=== PATIENT | male | born 1945 | race Hispanic/Latino ===

== ENCOUNTER 2017-04-30 08:00 | Day surgery (SDC) | payer OTHER, MEDICARE ==
[~2017-04-30] VITALS: Ht 162.6 cm; Wt 82.4 kg
[~2017-04-30 08:00] MED LIST: AMLO10TA2 PO; ASPI-555 PO; SODIUM CHLORIDE 0.9% 1000ML 1,000 ML IV ONE; TERA5CAP4 PO
[2017-04-30 08:30] VITALS: BP 114/65
[2017-04-30] MEDS ORDERED: MEPERIDINE-PF 50 MG/ML SYG ONE (10:49)
[2017-04-30] MEDS ORDERED: MIDAZOLAM HCL 1 MG/ML 2ML VIAL ONE (10:49)
== END 2017-04-30 11:52 | disposition home or self-care (01) ==
LOC: DAH 08:00 → ENDO 08:00
PROVIDERS: ATTEND Internal Medicine Gastroenterology
DX: K57.30 Diverticulosis of large intestine without perforation or abscess without bleeding (principal); I10 Essential (primary) hypertension; E78.5 Hyperlipidemia, unspecified; F17.210 Nicotine dependence, cigarettes, uncomplicated
CPT/HCPCS: 45378; 99156; 99157; A4606; J2175; J2250; J7030 ×2

== ENCOUNTER 2023-08-17 08:37 | Emergency (ER) | payer OTHER, MEDICARE ==
[~2023-08-17] VITALS: Ht 165.1 cm; Wt 82.6 kg
[~2023-08-17 08:37] MED LIST changes: +AMLO-258 PO; -AMLO10TA2 PO; -ASPI-555 PO; +ASPI-556 PO; -SODIUM CHLORIDE 0.9% 1000ML 1,000 ML IV ONE
[2023-08-17 09:09] LABS: BASOPHILS # (AUTO) 0.07 K/uL (0.00-0.20); BASOPHILS % (AUTO) 0.8 % (0.0-5.0); EOSINOPHILS # (AUTO) 0.63 K/uL (0.00-0.70); EOSINOPHILS % (AUTO) 6.8 % (0.0-8.0); IMMATURE GRANULOCYTE ABSOLUTE 0.03 K/uL (0-1); LYMPHOCYTES # (AUTO) 3.1 K/uL (1.0-4.8); LYMPHOCYTES % (AUTO) 33.1 % (21.0-51.0); MEAN CORPUSCULAR HEMOGLOBIN 31.3 pg (27.0-33.0); MEAN CORPUSCULAR HGB CONC 33.8 g/dL (32.0-36.0); MEAN CORPUSCULAR VOLUME 92.5 fL (79-99); MONOCYTES # (AUTO) 0.7 K/uL (0.1-1.0); MONOCYTES % (AUTO) 7.9 % (3.0-13.0); NEUTROPHILS # (AUTO) 4.7 K/uL (1.8-7.7); NEUTROPHILS % (AUTO) 51.1 % (40.0-77.0); PLATELET COUNT (AUTO) 300 K/uL (130-400); RED BLOOD CELL COUNT(AUTO) 4.54 MIL/uL (4.50-6.20); RED CELL DISTRIBUTION WIDTH 13.8 % (11.0-15.5); WHITE BLOOD COUNT (AUTO) 9.2 K/uL (4.8-10.8)
[2023-08-17 09:14] LABS: CREATININE 0.8 mg/dL (0.5-1.3); POTASSIUM 3.8 mmol/L (3.5-5.1)
[2023-08-17 09:17] LABS: APPEARANCE,URINE CLEAR (CLEAR); BILIRUBIN,URINE NEGATIVE (NEGATIVE); COLOR,URINE YELLOW (YELLOW); GLUCOSE, URINE (UA) NEGATIVE (NEGATIVE); KETONES,URINE NEGATIVE (NEGATIVE); LEUKOCYTE ESTERASE ,URINE NEGATIVE Leu/uL (NEGATIVE); NITRATE,URINE NEGATIVE (NEGATIVE); OCCULT BLOOD,URINE SMALL (NEGATIVE); PH,URINE 5.5 (5.0-8.0); PROTEIN,URINE 20 mg/dL (NEGATIVE); UROBILINOGEN,URINE 0.2 mg/dL (0.2-1.0)
[2023-08-17 09:18] LABS: ADD UA MICROSCOPIC YES
[2023-08-17 09:20] LABS: BACTERIA,URINE RARE /HPF (None Seen); MUCUS,URINE MOD LPF (None Seen); SQUAMOUS EPITHELIAL CELL,UR RARE /HPF (0-2)
[2023-08-17] MEDS: 0.9%NACL 1000ML 1,000 ML IV ONE (09:54)
[2023-08-17] MEDS: KETOROLAC 15MG/ML VIAL (15MG/ML) IV ONE (09:56)
[2023-08-17 11:04] VITALS: BP 124/65; PULSE 68; RESP 16; O2SAT 98
[2023-08-17] MEDS ORDERED: IBUP-2070 PO (12:02)
== END 2023-08-17 12:19 | disposition home or self-care (01) ==
LOC: EDH 08:37
DX: N43.3 Hydrocele, unspecified (principal); K57.30 Diverticulosis of large intestine without perforation or abscess without bleeding; Z79.82 Long term (current) use of aspirin; Z79.899 Other long term (current) drug therapy
CPT/HCPCS: 99284; 74176; 96360; 80048; 85025; 81001; 36415; 76870; J7030